=== PATIENT | male | born 1945 | race African-American/Black ===

== ENCOUNTER 2019-11-20 04:20 | Emergency (ER) | payer OTHER, SELFPAY ==
[2019-11-20] MEDS ORDERED: methylPREDNISolone Sod Succ/PF 125 MG/2 ML VIAL ONE (04:50)
[2019-11-20] MEDS ORDERED: Ventolin HFA Inhaler 60 PUFF INHALER ONE (04:50)
== END 2019-11-20 05:55 ==
LOC: NAV ERS 04:20
DX: J45.901 Unspecified asthma with (acute) exacerbation (principal); I10 Essential (primary) hypertension; N40.0 Benign prostatic hyperplasia without lower urinary tract symptoms; K21.9 Gastro-esophageal reflux disease without esophagitis; Z85.46 Personal history of malignant neoplasm of prostate; Z79.899 Other long term (current) drug therapy
CPT/HCPCS: 93005; 94760; 96372; J2930